=== PATIENT | female | born 1960 | race Caucasian/White ===

== ENCOUNTER 2017-12-23 20:54 | Emergency (ER) | payer MEDICARE, OTHER ==
[~2017-12-23] VITALS: Ht 177.8 cm; Wt 83.9 kg
[2017-12-23] MEDS ORDERED: UNICOMPLEX M TA1 TA1 PO (21:31)
[2017-12-23] MEDS ORDERED: FEOSOL325 M1 PO (21:32)
[2017-12-23] MEDS ORDERED: GEODON20 MG PO (21:32)
[2017-12-23] MEDS ORDERED: CYMBALTA60 MG PO (21:33)
[2017-12-23] MEDS ORDERED: BUSPIRONE HCL10 MG PO (21:33)
[2017-12-23] MEDS ORDERED: ZINC50 M1 PO (21:33)
[2017-12-23] MEDS ORDERED: TUMS PO (21:34)
[2017-12-23] MEDS ORDERED: ASPIR 8181 MG PO (21:34)
[2017-12-23] MEDS ORDERED: GLUCOSAMINE HC500 MG PO (21:35)
[2017-12-23] MEDS ORDERED: BUPROPION XL300 MG PO (21:35)
[2017-12-23] MEDS ORDERED: VITAMIN D5000 UNIT PO (21:36)
[2017-12-23] MEDS ORDERED: PROAIR HFA8.5 GM (21:36)
[2017-12-23] MEDS ORDERED: VOLTAREN GEL 1100 G1 TRANSDERM (21:37)
[2017-12-23] MEDS ORDERED: TYLENOL PM EX-1 EACH PO (21:37)
[2017-12-23] MEDS ORDERED: NASACORT10.8 ML INH (21:38)
[2017-12-23] MEDS ORDERED: PROBIOTIC1 EAC1 PO (21:38)
[2017-12-23] MEDS ORDERED: MAGNESIUM MALATE1 GM PO (21:39)
[2017-12-23] MEDS ORDERED: B12INJ IM (21:39)
[2017-12-23] MEDS ORDERED: REGLAN 10 MG TA10 MG PO (21:40)
[2017-12-23] MEDS ORDERED: INDAPAMIDE1.25 MG PO (21:40)
[2017-12-23] MEDS ORDERED: KLOR-CON M2020 MEQ PO (21:41)
[2017-12-23] MEDS ORDERED: PRINIVIL20 M1 PO (21:42)
[2017-12-23] MEDS ORDERED: L-LYSINE1000 M1 PO (21:42)
[2017-12-23] MEDS ORDERED: IMITREX100 MG PO (21:43)
[2017-12-23] MEDS ORDERED: ATIVAN1 MG PO ×3 (21:43→21:44)
[2017-12-23] MEDS ORDERED: MOBIC15 MG PO (21:44)
[2017-12-23 21:45] LABS: URINE CLARITY CLEAR; URINE COLOR YELLOW
[2017-12-23 21:46] LABS: URINE BILIRUBIN NEGATIVE (Negative); URINE BLOOD TRACE (Negative); URINE GLUCOSE-RANDOM NEGATIVE (Negative); URINE KETONES NEGATIVE (Negative); URINE NITRITE-REFLEX NEGATIVE (Negative); URINE PROTEIN NEGATIVE (Negative); URINE SPECIFIC GRAVITY < 1.005 (1.005-1.030)
[2017-12-23 21:47] LABS: URINE LEUKOCYTES-REFLEX NEGATIVE (Negative); URINE UROBILINOGEN 0.2 E.U./dl (0.2-1.0)
[2017-12-23 21:49] LABS: AMP/METHAMP Negative (Negative); BARBITURATES Negative (Negative); BENZODIAZEPINES Negative (Negative); COCAINE Negative (Negative); METHADONE Negative (Negative); OPIATES Negative (Negative); PCP Negative (Negative); THC Negative (Negative)
[2017-12-23 21:59] LABS: ABSOLUTE EOSINOPHILS 0.2 thou/uL (0.0-0.7); ABSOLUTE LYMPHOCYTES 1.3 thou/uL (0.8-5.3); ABSOLUTE MONOCYTES 0.7 thou/uL (0.0-1.2); ABSOLUTE NEUTROPHILS 3.5 thou/uL (1.6-8.1); BASOPHILS 0.4 %; EOSINOPHILS 4.2 %; HEMATOCRIT 38.2 % (37.0-47.0); HEMOGLOBIN 12.9 gm/dL (12.0-15.0); LYMPHOCYTES 22.5 %; MCH 31.5 pg (26.0-34.0); MCHC 33.8 g/dL (28.0-37.0); MCV 93.3 fL (80.0-100.0); MONOCYTES 12.3 %; MPV 7.2 fl. (7.2-11.1); NUCLEATED RBCS 0 /100WBC; PLATELET COUNT* 310 thou/uL (150-400); POLYS 60.6 %; RBC 4.09 mil/uL (4.20-5.00); RDW-CV 12.1 % (10.5-14.5); WBC 5.8 thou/uL (4.0-11.0)
[2017-12-23 22:03] LABS: ANION GAP 5 mmol/L (7-16); BUN 30 mg/dL (7-18); CALCIUM 9.2 mg/dL (8.5-10.1); CHLORIDE 98 mmol/L (98-107); CO2 30 mmol/L (21-32); CREATININE 0.9 mg/dL (0.6-1.3); GLUCOSE 102 mg/dL (70-99); POTASSIUM 4.3 mmol/L (3.5-5.1); SODIUM 133 mmol/L (136-145)
[2017-12-23 22:10] LABS: ALBUMIN 3.7 g/dL (3.4-5.0); ALKALINE PHOSPHATASE 94 U/L (46-116); SGOT 22 U/L (15-37); SGPT 31 U/L (30-65); TOTAL BILIRUBIN 0.2 mg/dL (<0.1-1.0); TOTAL PROTEIN 7.1 g/dL (6.4-8.2); TROPONIN-I LEVEL <0.06 ng/mL (<0.06)
[2017-12-23 23:40] LABS: AMP/METHAMP Negative (Negative); BARBITURATES Negative (Negative); BENZODIAZEPINES Negative (Negative); COCAINE Negative (Negative); METHADONE Negative (Negative); OPIATES Negative (Negative); PCP Negative (Negative); THC Negative (Negative)
[2017-12-24 01:37] VITALS: BP 112/58
--- NOTE | 2017-12-24 12:31 | EKG ---
[place] [address] ELECTROCARDIOGRAM REPORT Name: GWENDOLYN RICHTER Room: [facility]#: [id number] Admission: 12/23/17 Attend Phys: Discharge: 12/24/17 Date of : 58 Report #: [id number] THIS REPORT FOR: //name// [facility] ED Test Date: 2017-12-23 Test Time: 21:51:39 Pat Name: GWENDOLYN RICHTER Department: Room: Gender: F [employer] Tester: MORENA : 1960 Requested By: Janice Patterson Order Number: [id number] MD: Brian Asif Measurements Intervals [place] Rate: 75 P: 42 PA: 164 QRS: 44 QRSD: 91 T: 20 QT: 381 QTc: 426 Interpretive Statements Sinus rhythm Consider left ventricular hypertrophy No previous ECG available for comparison Electronically Signed On 12-24-2017 12:31:20 CDT by Brian Asif [email or web address] <ELECTRONICALLY SIGNED> By: Brian Asif MD, [facility] 12/24/17 1231 2151 50 Brian Asif MD, FACC /EPI
== END 2017-12-24 01:38 | disposition home or self-care (01) ==
LOC: M.ERS 20:54
PROVIDERS: Personal Emergency Response Attendant
DX: Z04.6 Encounter for general psychiatric examination, requested by authority (principal); M41.9 Scoliosis, unspecified; G47.33 Obstructive sleep apnea (adult) (pediatric); M06.9 Rheumatoid arthritis, unspecified; M79.7 Fibromyalgia; F31.9 Bipolar disorder, unspecified; F41.9 Anxiety disorder, unspecified; J44.9 Chronic obstructive pulmonary disease, unspecified; I10 Essential (primary) hypertension; K21.9 Gastro-esophageal reflux disease without esophagitis; N80.9 Endometriosis, unspecified; Z88.6 Allergy status to analgesic agent; Z88.1 Allergy status to other antibiotic agents; Z91.012 Allergy to eggs; Z91.011 Allergy to milk products; Z91.018 Allergy to other foods; Z88.8 Allergy status to other drugs, medicaments and biological substances

== ENCOUNTER → 2021-04-14 | Outpatient (CLI) | payer OTHER ==
[~2021-04-14] MED LIST: ASPIR 8181 MG PO; ATIVAN1 MG PO; B12INJ IM; BUPROPION XL300 MG PO; BUSPIRONE HCL10 MG PO; CYMBALTA60 MG PO; FEOSOL325 M1 PO; GEODON20 MG PO; GLUCOSAMINE HC500 MG PO; IMITREX100 MG PO; INDAPAMIDE1.25 MG PO; KLOR-CON M2020 MEQ PO; L-LYSINE1000 M1 PO; MAGNESIUM MALATE1 GM PO; MOBIC15 MG PO; NASACORT10.8 ML INH; PRINIVIL20 M1 PO; PROAIR HFA8.5 GM; PROBIOTIC1 EAC1 PO; REGLAN 10 MG TA10 MG PO; TUMS PO; TYLENOL PM EX-1 EACH PO; UNICOMPLEX M TA1 TA1 PO; VITAMIN D5000 UNIT PO; VOLTAREN GEL 1100 G1 TRANSDERM; ZINC50 M1 PO
== END ==
LOC: M.LAB 13:49
PROVIDERS: ATTEND Internal Medicine Gastroenterology
DX: Z01.812 Encounter for preprocedural laboratory examination (principal); Z20.822 Contact with and (suspected) exposure to COVID-19